=== PATIENT | male | born 1975 | race Caucasian/White ===

== ENCOUNTER 2017-08-28 11:46 | Outpatient (CLI) | payer BC ==
--- NOTE | 2017-08-28 12:23 | CT ---
CT SINUSES: History: Recurrent sinusitis. Technique: Axial images were obtained with coronal reconstructions. FINDINGS: There is mild mucosal thickening in the right and left frontal sinuses with moderate mucosal thickeni ng in the anterior and posterior ethmoid sinuses. Minimal bilateral mucosal thickening is seen in the maxillary sinuses. There is also mild mucosal thickening in the left sphenoid sinus. Minimal right s phenoid sinus mucosal thickening is seen. There is extensive opacification of the left mastoid air ce lls and some moderate left middle ear opacification. IMPRESSION: Maya sinus disease, predominately minimal and some mild. No evidence of air fluid levels seen. No othe r significant abnormalities seen. POS: [facility]
--- NOTE | 2017-08-28 14:37 | CT ---
CT OF THE TEMPORAL BONES: DATE: 08/28/17. COMPARISON: None. HISTORY: Left-sided hearing loss, evaluate for cholesteatoma. TECHNIQUE: Serial axial CT imaging is obtained at 0.63 mm intervals through the temporal bones without contrast. Coronal reformatted imaging obtained. FINDINGS: Limited assessment of the brain parenchyma appears grossly unremarkable. Partially imaged paranasal sinuses demonstrate bilateral ethmoid air cell mucosal thickening as well as mild mucosal thickening involving the alveolar recess of bilateral maxillary sinuses in the posterior aspect of the left sphe noid sinus. RIGHT TEMPORAL BONE: The internal auditory canal, cochlea, vestibule, vestibular aqueduct, and semicircular canals appear unremarkable. The course of the facial nerve on the right appears normal as well. The ossicle appears intact. The mastoid air cells are well aerated. Prussak's space is clear. The scutum is sharp. No evidence for osseous dehiscence. The vascular fo ramen appear grossly unremarkable. No acute osseous abnormality. LEFT TEMPORAL BONE: The internal auditory canal, cochlea, vestibule, vestibular aqueduct, and semicircular canals appear grossly unremarkable. There is complete opacification of the mastoid air cells and aditus at antrum. The tympanic membrane is thickened and retracted. The scutum is eroded. There is abnormal soft tiss ue density in Prussak's space filling the epitympanum and mesotympanum medial and lateral to the ossi cles. There is soft tissue density ventral to the foraminal eminence extending into the region of th e facial nerve recess. There is abnormal erosion of the ossicles. The head of the malleolus is eroded and hypoplastic. The handle of the malleolus appears intact. The incus is completely nonvisualized suggesting erosion of the incus. The stapes is not well seen which may be secondary to adjacent soft tissue or erosion of the stapes. There is no evidence for osseous dehiscence. The vascular foramina appear grossly unremarkable. IMPRESSION: 1. On the left, there is complete opacification of the mastoid air cells and aditus at antrum with p artial opacification of the mesotympanum and epitympanum. Soft tissue fills Prussak's space and ther e is erosion of the scutum as well as extensive erosion of the ossicles. The findings are most consi stent with extensive cholesteatoma formation on the left. Superimposed otomastoiditis cannot be excl uded. 2. Grossly unremarkable appearance of the right temporal bone. POS: [facility]
== END 2017-08-28 11:47 | disposition home or self-care (01) ==
LOC: CT 11:46
PROVIDERS: ATTEND Otolaryngology Otology & Neurotology
DX: H71.90 Unspecified cholesteatoma, unspecified ear (principal); J01.91 Acute recurrent sinusitis, unspecified; H74.8X2 Other specified disorders of left middle ear and mastoid; J32.9 Chronic sinusitis, unspecified
CPT/HCPCS: 70480

== ENCOUNTER 2018-05-11 15:30 | Outpatient (CLI) | payer BC ==
--- NOTE | 2018-05-11 15:53 | RAD ---
EXAM: CHEST TWO VIEWS: 05/11/18 HISTORY: Wheezing. FINDINGS: Heart size is normal. The lungs are clear. No pneumonia, edema or pleural effusion. IMPRESSION: No acute intrathoracic disease. POS: [facility]
== END 2018-05-11 15:31 | disposition home or self-care (01) ==
LOC: SCSRAD 15:30
PROVIDERS: ATTEND Family Medicine
DX: R06.2 Wheezing (principal)
CPT/HCPCS: 71046

== ENCOUNTER 2018-09-10 10:32 | Day surgery (SDC) | payer BC ==
[2018-09-07 13:45] VITALS: BMI 45.1
[2018-09-10] MEDS ORDERED: EPINEPHrine 1 MG/ML AMP ONE (13:16)
[2018-09-10] MEDS ORDERED: Gelfilm 1 EA Packet ONE (13:16)
[2018-09-10] MEDS ORDERED: Lidocaine 1% w/Epinephrine 1:100K 20 ML VIAL ONE (13:16)
[2018-09-10] MEDS ORDERED: Bupivacaine/Epinephrine 0.25% 30 ML VIAL ONE (13:16)
[2018-09-10] MEDS ORDERED: Sodium Chloride 0.9% 10 ML ONE (13:17)
[2018-09-10] MEDS ORDERED: Bacitracin Zinc Ointment 30 gm TUBE ONE (13:17)
[2018-09-10] MEDS ORDERED: Fentanyl 250 MCG/5 ML VIAL ONE (13:22)
[2018-09-10] MEDS ORDERED: Propofol 500 MG/50 ML VIAL ONE (14:22)
[2018-09-10] MEDS ORDERED: Propofol 1,000 MG/100 ML VIAL IV ONE (14:24)
[2018-09-10] MEDS ORDERED: Fentanyl 100 MCG/2 ML VIAL ONE (15:48)
[2018-09-10] MEDS ORDERED: Lidocaine 1% PF 5 ML VIAL ONE (16:59)
[2018-09-10] MEDS ORDERED: Succinylcholine Chloride 20 MG/ML 10 ml SYRINGE FS ONE (16:59)
[2018-09-10] MEDS ORDERED: PROPOFOL 200 MG/20 ML VIAL ONE (16:59)
[2018-09-10] MEDS ORDERED: Ondansetron PF 4 MG/2 ML Vial ONE (16:59)
[2018-09-10] MEDS ORDERED: Dexamethasone 20 MG/5 ML VIAL ONE (16:59)
--- NOTE | 2018-09-10 22:39 | OP ---
DATE OF PROCEDURE: 09/10/2018 PREOPERATIVE DIAGNOSIS: Left cholesteatoma. PROCEDURES PERFORMED: 1. Left tympanoplasty mastoidectomy with ossicular chain reconstruction using a total TORP titanium prosthesis. 2. Microscopic surgical procedure. 3. Facial nerve monitoring for 2 hours. POSTOPERATIVE DIAGNOSIS: Left cholesteatoma. ANESTHESIA: General. COMPLICATIONS: None. ESTIMATED BLOOD LOSS: 5 mL. SPECIMENS: None. ASSISTANTS: None. DISPOSITION: Stable to recovery room. FINDINGS: Very inflamed mastoid and middle ear space. The three pieces of Silastic were removed. Facial nerve identification was difficult but did identify in a vertical segment mesotympanum using stimulation. The posterior aline of the stapes was not present, but the anterior aline was. Total prosthesis was placed on the footplate and then connected to the TM and Gelfoam in the middle ear space. This was all performed postauricular and there was no recurrence of cholesteatoma. PROCEDURE IN DETAIL: 1. Left tympanoplasty, mastoidectomy with ossicular chain reconstruction: After informed consent was obtained, the patient was taken to the operating room, placed supine in position. General endotracheal anesthetic was administered and table was rotated to 180 degrees. Left ear was injected postauricular with 0.25% Marcaine with epinephrine. Left ear was draped and prepped in sterile fashion. Inspection of the ear canal and TM showed to be clean and dry without lesions. Irrigated all and removed all traces of prep. TM was thickened, but there was no retraction or cholesteatoma. Postauricular incision was made, carried down through dense soft tissue. Ear reflected forward with a 10 blade, pericranial flap elevated with Bovie, retractors placed. The mastoid had almost completely regrown slight indentation toward attic region drill, drilled and revised the mastoid cavity noting excellent new bone growth from the bone angel, identifying the facial recess. The facial nerve was enveloped in an intense inflammatory tissue and identification was very difficult. However, we were able to trace it out inferiorly up into the mesotympanum. Silastic was removed and inspection of the middle ear space and attic showed there to be no cholesteatoma. TORP prosthesis fashioned and fit nicely directly through the footplate as described above. 2. Microscopic surgical procedure: Throughout the entirety of operation, microscope was integral part of procedure using 4 power out of 14 power and high illumination. 3. Facial nerve monitoring for 2 hours: At the beginning of the operation, EMG electrodes were placed in orbicularis oculi and orbicularis auris, attached to the nerve integrity monitoring system. Response threshold was 100 microvolts and stimulus ranging from 0.5 to 1.0. We were able to stimulate and identify possibly the facial nerve in a vertical segment. It was outside of the fallopian canal prior to this procedure mesotympanum. With these procedures completed, wounds were closed in layers of 2-0 and 3-0 Monocryl and Dermabond for the skin. The patient tolerated the procedure well, was turned over to Anesthesia in a stable condition. Job ID: [id number]
--- NOTE | 2018-09-12 13:14 | EKG ---
Test Reason : PREOP Blood Pressure : / mmHG Vent. Rate : 073 BPM Atrial Rate : 073 BPM P-R Int : 178 ms QRS Dur : 078 ms QT Int : 352 ms P-R-T Axes : 055 046 031 degrees QTc Int : 387 ms Normal sinus rhythm Normal ECG No previous ECGs available Confirmed by RENATA HELM (2) on 09/12/2018 1:14:09 PM Referred By: JEFFERSON Confirmed By:RENATA HELM
== END 2018-09-10 18:05 | disposition home or self-care (01) ==
LOC: SDC 10:32
PROVIDERS: ATTEND Otolaryngology Otology & Neurotology
PROC: 09R Ear, Nose, Sinus, Replacement (ICD-10-PCS; principal; 2018-09-10)
PROC: 09RA0JZ Replacement of Left Auditory Ossicle with Synthetic Substitute, Open Approach (ICD-10-PCS; principal; 2018-09-10)
PROC: 0NB60ZZ Excision of Left Temporal Bone, Open Approach (ICD-10-PCS; principal; 2018-09-10)
DX: H71.92 Unspecified cholesteatoma, left ear (principal); H91.92 Unspecified hearing loss, left ear; G47.30 Sleep apnea, unspecified; E11.9 Type 2 diabetes mellitus without complications; M10.9 Gout, unspecified; E66.9 Obesity, unspecified; Z68.42 Body mass index [BMI] 45.0-49.9, adult; Z79.899 Other long term (current) drug therapy
CPT/HCPCS: 93005; 93010; J0171; J2001; J2704; J3010; J3490

== ENCOUNTER 2019-08-26 07:10 | Outpatient (CLI) | payer BC, OTHER ==
[2019-08-27 14:02] LABS: SARS-CoV-2 MS2 Positive; SARS-CoV-2 N Gene Negative; SARS-CoV-2 S Gene Negative; SARS-CoV-2 orf1ab Negative
== END 2019-08-26 07:11 | disposition home or self-care (01) ==
LOC: LABBT 07:10
PROVIDERS: ATTEND Internal Medicine Gastroenterology
DX: Z01.812 Encounter for preprocedural laboratory examination (principal); Z11.59 Encounter for screening for other viral diseases; Z12.11 Encounter for screening for malignant neoplasm of colon
CPT/HCPCS: 87635; U0003

== ENCOUNTER 2019-08-29 05:55 | Day surgery (SDC) | payer BC ==
[2019-08-23 10:19] VITALS: BMI 50.2
[2019-08-29] MEDS ORDERED: Midazolam HCl 2 mg/2 ml Vial ONE (07:59)
[2019-08-29] MEDS ORDERED: PROPOFOL 200 MG/20 ML VIAL ONE (12:04)
[2019-08-29] MEDS ORDERED: Lidocaine 1% PF 5 ML VIAL ONE (12:04)
[2019-08-29] MEDS ORDERED: EPINEPHrine 1 MG/10 ML Abboject SYRINGE ONE (12:05)
[2019-08-29] MEDS ORDERED: Iopamidol 370 76% 100 ML VIAL ONE (12:10)
[2019-08-29] MEDS ORDERED: Iopamidol 370 76% 50 ML VIAL FS ONE (12:10)
--- NOTE | 2019-08-29 13:22 | OP ---
DATE OF PROCEDURE: 08/29/2019 PREOPERATIVE DIAGNOSIS: Iron deficiency anemia. DESCRIPTION OF PROCEDURE: Informed consent was obtained from the patient. He was sedated with total intravenous anesthesia. The bite block was placed and the endoscope was advanced easily to the second portion of the duodenum and retroflexion was performed in the stomach. The esophagus was normal. The GE junction revealed a 4 cm hiatal hernia. The stomach was otherwise normal including retroflexed views. The pylorus and first and second portions of the duodenum were normal. Biopsies were taken from the duodenum to rule out celiac disease. The patient was turned around. Rectal exam was performed and was normal. The preparation quality was good. The colonoscope was advanced to the sigmoid colon where a large circumferential stricturing mass was encountered at 25-30 cm. Multiple biopsies were obtained. The mass was too tight to pass the colonoscope through. An exchange was made for a smaller diameter upper endoscope. The endoscope could be passed through the stricture and was advanced with significant effort on to the cecum, where the ileocecal valve and appendiceal orifice were clearly identified. There was a 4 mm polyp removed from the proximal transverse colon by cold snare polypectomy. There was a 1.1 cm pedunculated polyp in the descending colon, which I removed by snare cautery polypectomy. This had immediate pulsatile post polypectomy bleeding. I injected the polypectomy base with epinephrine 2 mL, which slowed the bleeding. I placed 2 hemoclips over the polypectomy site with good control of the bleeding and hemostasis was confirmed. There was another pedunculated polyp; however the base of the pedunculated polyp was at the proximal margin of the sigmoid tumor, which will be resected surgically and therefore this polyp was left alone. I placed a tattoo in two sites at the proximal margin of the sigmoid mass and also the distal margin of the sigmoid mass with 5 mL of Hannah ink for submucosal injection for a total of 4 mL. Retroflexed views in the rectum were unremarkable. A 3 mm polyp was removed from the rectum by cold snare polypectomy. There was mild diverticulosis in the sigmoid colon. IMPRESSION: 1. Hiatal Hernia 2. Otherwise normal esophagogastroduodenoscopy. Duodenal biopsies taken to rule out celiac disease. 3. Circumferential strictured sigmoid mass from 25-30 cm. Multiple biopsies were obtained. Tattoos were placed at the proximal and distal margins of the mass. There was a pedunculated polyp with the base of the polyp at the proximal margin and therefore, this polyp was left alone as it will be removed surgically with the mass. Multiple biopsies were obtained from the mass. 4. A 4 mm polyp was removed from the proximal transverse colon by cold snare polypectomy. 5. A 1.1 cm pedunculated polyp removed from the descending colon by snare cautery polypectomy. There was immediate pulsatile bleeding following the polypectomy from the stalk of the polyp and this was controlled with injection of epinephrine and placement of hemoclips with good hemostasis confirmed. 6. A 3 mm rectal polyp removed by cold snare. 7. Mild diverticulosis in the descending colon. RECOMMENDATIONS: 1. Await histopathology. 2. CT scan of the chest, abdomen and pelvis. 3. Check CEA level. 4. General surgery referral. 5. Surveillance colonoscopy in 1 year. Job ID: [id number] MTDD
--- NOTE | 2019-08-29 14:11 | CT ---
CT Chest Abd Pelvis W Con History: Sigmoid mass. Status post colonoscopy. Comparison: None. Findings: Lungs are clear. No pneumothorax. No effusion. No suspicious pulmonary nodule. No mediastinal adenopathy. No pericardial fluid. The scapula are intact. No displaced rib fracture. No suspicious osteolytic or osteoblastic lesions. No thoracic or lumbar spine compression deformity. Liver, spleen, pancreas, gallbladder are all unremarkable. Reactive yogesh hepatis lymph nodes. The aortic contour is nonaneurysmal. Kidneys and adrenal glands are unremarkable. The appendix is nor mal. Few reactive ileocolic mesenteric lymph nodes. Circumferential annular mass of the sigmoid colon with a length of approximately 4.5 cm. No definitiv e invasion through the serosa. Small sigmoid mesenteric lymph nodes. No other mass is appreciated. Impression: Circumferential 4.5 cm in length sigmoid colon mass with small 4-5 mm sigmoid colonic lym ph nodes. No evidence for extra serosal involvement nor hepatic metastatic disease.
== END 2019-08-29 14:35 | disposition home or self-care (01) ==
LOC: SDC 05:55
PROVIDERS: ATTEND Internal Medicine Gastroenterology
PROC: 0DBP8ZX Excision of Rectum, Via Natural or Artificial Opening Endoscopic, Diagnostic (ICD-10-PCS; principal; 2019-08-29)
PROC: 0DBL8ZX Excision of Transverse Colon, Via Natural or Artificial Opening Endoscopic, Diagnostic (ICD-10-PCS; principal; 2019-08-29)
PROC: 0DB98ZX Excision of Duodenum, Via Natural or Artificial Opening Endoscopic, Diagnostic (ICD-10-PCS; principal; 2019-08-29)
PROC: 0DBM8ZX Excision of Descending Colon, Via Natural or Artificial Opening Endoscopic, Diagnostic (ICD-10-PCS; principal; 2019-08-29)
PROC: 3E0H8GC Introduction of Other Therapeutic Substance into Lower GI, Via Natural or Artificial Opening Endoscopic (ICD-10-PCS; principal; 2019-08-29)
PROC: 0DBN8ZX Excision of Sigmoid Colon, Via Natural or Artificial Opening Endoscopic, Diagnostic (ICD-10-PCS; principal; 2019-08-29)
DX: Z12.11 Encounter for screening for malignant neoplasm of colon (principal); C18.7 Malignant neoplasm of sigmoid colon; D12.4 Benign neoplasm of descending colon; K31.7 Polyp of stomach and duodenum; K29.80 Duodenitis without bleeding; K29.50 Unspecified chronic gastritis without bleeding; K62.1 Rectal polyp; K44.9 Diaphragmatic hernia without obstruction or gangrene; K57.30 Diverticulosis of large intestine without perforation or abscess without bleeding; D50.9 Iron deficiency anemia, unspecified; E11.9 Type 2 diabetes mellitus without complications; M10.9 Gout, unspecified; E78.5 Hyperlipidemia, unspecified; I10 Essential (primary) hypertension; G47.30 Sleep apnea, unspecified; Z79.899 Other long term (current) drug therapy
CPT/HCPCS: 36415; 71260; 74177; 82378; 88305; 88312; J0171; J2250; J2704

== ENCOUNTER 2019-10-15 07:44 | Outpatient (CLI) | payer BC, OTHER ==
[2019-10-16 12:51] LABS: SARS-CoV-2 MS2 Positive; SARS-CoV-2 N Gene Negative; SARS-CoV-2 S Gene Negative; SARS-CoV-2 by NAA Not Detected (NotDetected); SARS-CoV-2 orf1ab Negative
== END 2019-10-15 07:45 | disposition home or self-care (01) ==
LOC: LABBT 07:44
PROVIDERS: ATTEND Specialist
DX: C18.7 Malignant neoplasm of sigmoid colon (principal); Z20.828 Contact with and (suspected) exposure to other viral communicable diseases
CPT/HCPCS: 87635; U0003

== ENCOUNTER 2019-10-18 09:44 | Day surgery (SDC) | payer BC ==
[2019-10-16 10:38] VITALS: BMI 48.7
[~2019-10-18 09:44] MED LIST: Lidocaine 1% PF 5 ML VIAL ONE; PROPOFOL 200 MG/20 ML VIAL ONE
[2019-10-18] MEDS ORDERED: Lidocaine 2% w/Epinephrine 1:200K 20 ML VIAL ONE (10:06)
[2019-10-18] MEDS ORDERED: Bupivacaine PF 0.5% 30 ML VIAL ONE (10:06)
[2019-10-18] MEDS ORDERED: Fentanyl 100 MCG/2 ML VIAL ONE (11:02)
[2019-10-18] MEDS ORDERED: Midazolam HCl 2 mg/2 ml Vial ONE ×2 (11:02→11:13)
--- NOTE | 2019-10-18 11:57 | RAD ---
XR Chest 1 View Portable HISTORY: Mediport placement COMPARISON: 09/27/2019 FINDINGS: The heart size is stable. There is been interval placement of a left sided Port-A-Cath in t he projection of the right atrium. The lungs are well expanded without focal areas of consolidation, pneumothorax or pleural effusions. IMPRESSION: No radiographic evidence of acute cardiopulmonary process.
--- NOTE | 2019-10-18 16:19 | OP ---
DATE OF PROCEDURE: 10/18/2019 PREOPERATIVE DIAGNOSES: Sigmoid colon cancer, status post resection, in need of chemotherapy access. POSTOPERATIVE DIAGNOSES: Sigmoid colon cancer, status post resection, in need of chemotherapy access. PROCEDURE PERFORMED: Left subclavian vein, standard MediPort, PowerPort. ANESTHESIA: Intravenous sedation, local 0.5% Marcaine 30 mL with 1% Xylocaine with epinephrine 20 mL. Fluoroscopy used. DESCRIPTION OF PROCEDURE: The patient was taken to the operating room, where under sedation, his chest and neck were prepared with ChloraPrep and draped in routine fashion. Local anesthetic infiltrated in the skin and subcutaneous tissue about the operative site. Infraclavicular approach used in the left, cannulating the subclavian vein, threading the J-wire, enlarging the skin exit site sharply, carried down through skin, subcutaneous tissue, creating a pocket with blunt and sharp dissection. Good hemostasis noted. Trocar catheter removed. Dilator and Peel-Away sheath placed over the J-wire into the superior vena, and dilator and J-wire removed. Catheter placed with Peel-Away sheath. Peel-Away sheath removed. Fluoroscopically, catheter tip placed in optimal position, tailored to length, connected to the MediPort, placed in subcutaneous pocket, secured to 2-inch suture of 3-0 Prolene. Subcutaneous tissue was approximated with 3-0 Monocryl, skin with subdermal 4-0 Monocryl, MediPort accessed with a Alvarez needle, aspirated blood, flushed with heparinized saline solution. Final fluoroscopic images revealed good line placement. Job ID: [id number]
== END 2019-10-18 12:30 | disposition home or self-care (01) ==
LOC: SDC 09:44
PROVIDERS: ATTEND Specialist
PROC: 02HV33Z Insertion of Infusion Device into Superior Vena Cava, Percutaneous Approach (ICD-10-PCS; principal; 2019-10-18)
DX: C18.7 Malignant neoplasm of sigmoid colon (principal); I10 Essential (primary) hypertension; E78.5 Hyperlipidemia, unspecified; G47.33 Obstructive sleep apnea (adult) (pediatric); E11.9 Type 2 diabetes mellitus without complications; E66.01 Morbid (severe) obesity due to excess calories; Z68.42 Body mass index [BMI] 45.0-49.9, adult; Z79.899 Other long term (current) drug therapy; Z90.49 Acquired absence of other specified parts of digestive tract
CPT/HCPCS: 71045; C1788; J0690; J1642; J2250; J2704; J3010; S0020

== ENCOUNTER 2020-09-18 05:55 | Day surgery (SDC) | payer BC ==
[2020-09-17 11:42] VITALS: BMI 48.7
[2020-09-18] MEDS ORDERED: Ketamine 50 MG/ML (10ML VIAL) ONE (07:28)
[2020-09-18] MEDS ORDERED: Lidocaine 1% PF 5 ML VIAL ONE (07:43)
[2020-09-18] MEDS ORDERED: PROPOFOL 200 MG/20 ML VIAL ONE (07:43)
== END 2020-09-18 09:07 | disposition home or self-care (01) ==
LOC: SDC 05:55
PROVIDERS: ATTEND Internal Medicine Gastroenterology
PROC: 0DJD8ZZ Inspection of Lower Intestinal Tract, Via Natural or Artificial Opening Endoscopic (ICD-10-PCS; principal; 2020-09-18)
DX: Z12.11 Encounter for screening for malignant neoplasm of colon (principal); K57.30 Diverticulosis of large intestine without perforation or abscess without bleeding; K64.8 Other hemorrhoids; K63.89 Other specified diseases of intestine; E11.9 Type 2 diabetes mellitus without complications; M10.9 Gout, unspecified; E78.5 Hyperlipidemia, unspecified; I10 Essential (primary) hypertension; G47.30 Sleep apnea, unspecified; Z79.84 Long term (current) use of oral hypoglycemic drugs; Z79.899 Other long term (current) drug therapy
CPT/HCPCS: J2704

== ENCOUNTER 2024-02-12 06:08 | Day surgery (SDC) | payer BC ==
[2024-02-09 09:22] VITALS: BMI 50.2
[2024-02-12] MEDS ORDERED: Lidocaine 1% PF 5 ML VIAL ONE (07:47)
[2024-02-12] MEDS ORDERED: PROPOFOL 200 MG/20 ML VIAL ONE (07:47)
== END 2024-02-12 09:18 | disposition home or self-care (01) ==
LOC: SDC 06:08
PROVIDERS: ATTEND Internal Medicine Gastroenterology
PROC: 0DBL8ZZ Excision of Transverse Colon, Via Natural or Artificial Opening Endoscopic (ICD-10-PCS; principal; 2024-02-12)
DX: Z12.11 Encounter for screening for malignant neoplasm of colon (principal); D12.3 Benign neoplasm of transverse colon; K57.30 Diverticulosis of large intestine without perforation or abscess without bleeding; I10 Essential (primary) hypertension; E11.9 Type 2 diabetes mellitus without complications; E78.5 Hyperlipidemia, unspecified; G47.33 Obstructive sleep apnea (adult) (pediatric); M10.9 Gout, unspecified; Z90.49 Acquired absence of other specified parts of digestive tract; Z85.038 Personal history of other malignant neoplasm of large intestine; Z79.84 Long term (current) use of oral hypoglycemic drugs; Z79.899 Other long term (current) drug therapy
CPT/HCPCS: 88305; J2704